=== PATIENT | male | born 1940 | race Caucasian/White ===

== ENCOUNTER 2018-02-10 11:29 | Emergency (ER) | payer OTHER, MEDICARE ==
[2018-02-10] MEDS: ACETAMINOPH W/CODEINE #3 TAB UD PO (13:52)
[2018-02-10 14:15] LABS: APPEARANCE, URINE CLEAR (CLEAR); BACTERIA, URINE AUTO NEGATIVE (NEGATIVE); BILIRUBIN, URINE AUTO NEGATIVE (NEGATIVE); BLOOD, URINE BLOOD NEGATIVE (NEGATIVE); COLOR, URINE YELLOW (YELLOW); GLUCOSE, URINE (UA) AUTO NEGATIVE (NEGATIVE); KETONE, URINE AUTO NEGATIVE (NEGATIVE); LEUKOCYTE ESTERASE, URINE AUTO NEGATIVE (NEGATIVE); MUCUS, URINE SMALL (NEGATIVE); NITRITE, URINE AUTO NEGATIVE (NEGATIVE); PROTEIN, URINE AUTO NEGATIVE (NEGATIVE); RBC, URINE AUTO 0 /HPF (0-3); SPECIFIC GRAVITY URINE AUTO 1.024 (1.002-1.035); SQUAMOUS EPITHELIAL CELL UR AU 0 /HPF (0-6); UROBILINOGEN, URINE AUTO 0.2 mg/dL (0.0-2.0); WBC, URINE AUTO 0 /HPF (0-3)
== END 2018-02-10 15:18 | disposition home or self-care (01) ==
LOC: M ED 11:29
DX: S32.010A Wedge compression fracture of first lumbar vertebra, initial encounter for closed fracture (principal); W13.2XXA Fall from, out of or through roof, initial encounter; Y92.89 Other specified places as the place of occurrence of the external cause; E78.9 Disorder of lipoprotein metabolism, unspecified; Z79.899 Other long term (current) drug therapy; Z87.891 Personal history of nicotine dependence
CPT/HCPCS: 72110

== ENCOUNTER → 2019-04-30 | Outpatient (CLI) | payer OTHER ==
[~2019-04-30] MED LIST: ACET-716 PO; IBUP-1022 PO; MAGN200T PO; ROBA500T PO; SIMV10TA2 PO
--- NOTE | 2019-05-01 00:14 | REP ---
Examination Requested: Cookie Swallow Reason For Exam: Gastroesophageal reflux The procedure was performed by DAMON Anderson, under the direct supervision of Dr. Stanley. The procedure was performed with Josselyn Avila from speech pathology present. 5 ml aliquots of thin, pudding, mixed fruit, soft food, hard food and pill consistency barium was administered. No penetration or aspiration was observed throughout the course of the exam. The detailed report of this examination will be provided by speech pathology. 1.4 minutes of fluoroscopy time was utilized for this procedure. Reviewed by DAMON Lund 04/30/2019 11:36 A Electronically Signed by Roni Stanley MD 05/01/2019 12:05 A
== END ==
LOC: M ST 10:34
PROVIDERS: ATTEND Otolaryngology
DX: K21.9 Gastro-esophageal reflux disease without esophagitis (principal)

== ENCOUNTER → 2021-01-19 | Outpatient (CLI) | payer OTHER ==
[~2021-01-19] MED LIST changes: +OMEP40CA97 PO; -SIMV10TA2 PO; +SIMV10TA21 PO
== END ==
LOC: M LABSMTC 10:43
PROVIDERS: ATTEND Anesthesiology
DX: Z01.818 Encounter for other preprocedural examination (principal); Z11.52 Encounter for screening for COVID-19

== ENCOUNTER 2021-01-24 09:28 | Day surgery (SDC) | payer OTHER ==
[~2021-01-24] VITALS: Ht 172.7 cm; Wt 74.4 kg
[~2021-01-24 09:28] MED LIST changes: +LIDOCAINE 2% 100MG/5ML SDV (FOR ANES.) As Ordered ONE; +NS 1,000 ML IV ONE; +propofoL 500 MG/50 ML VIAL As Ordered ONE
[2021-01-24] MEDS ORDERED: ePHEDrine SULFATE 25 MG/5 ML(5MG/ML) SYRINGE As Ordered ONE (10:43)
--- NOTE | 2021-01-24 10:54 | ROOR ---
Patient Name: Baldemar Galarza Procedure Date: 01/24/2021 10:28 AM Date of : 1940 Age: 80 Room: [facility] Gender: Male Note Status: Finalized Procedure: Total Colonoscopy to Cecum + ileoscopy Indications: High risk colon cancer surveillance: Personal history of colonic polyps, Last colonoscopy: 2015 Providers: Vega Veronica MD Referring MD: Nicola Merrill Requesting Provider: Medicines: Monitored Anesthesia Care Complications: No immediate complications. Procedure: Pre-Anesthesia Assessment: - The heart rate, respiratory rate, oxygen saturations, blood pressure, adequacy of pulmonary ventilation, and response to care were monitored throughout the procedure. The Colonoscope was introduced through the anus and advanced to the cecum, identified by appendiceal orifice and ileocecal valve. The colonoscopy was performed without difficulty. The patient tolerated the procedure well. The quality of the bowel preparation was excellent. Findings: The perianal and digital rectal examinations were normal. Non-bleeding internal hemorrhoids were found during retroflexion. The hemorrhoids were small and Grade I (internal hemorrhoids that do not prolapse). The exam was otherwise without abnormality on direct and retroflexion views. The terminal ileum appeared normal. Impression: - Non-bleeding internal hemorrhoids. - The examination was otherwise normal on direct and retroflexion views. - The examined portion of the ileum was normal. - No specimens collected. - The exam was otherwise normal to the cecum. Recommendation: - Patient has a contact number available for emergencies. The signs and symptoms of potential delayed complications were discussed with the patient. Return to normal activities tomorrow. Written discharge instructions were provided to the patient. - High fiber diet. - Discharge patient to home. - Continue present medications. - Repeat colonoscopy is not recommended due to current age (66 years or older) for surveillance. - Return to referring physician. - The findings and recommendations were discussed with the patient. Procedure Code(s): --- Professional --- G0105, Colorectal cancer screening; colonoscopy on individual at high risk Diagnosis Code(s): --- Professional --- Z86.010, Personal history of colonic polyps K64.0, First degree hemorrhoids CPT copyright 2019 [employer]. All rights reserved. The codes documented in this report are preliminary and upon loan underwriter review may be revised to meet current compliance requirements. Vega Veronica MD Vega Veronica MD 01/24/2021 10:53:33 AM Electronically signed by Vega Veronica MD Number of Addenda: 0 Note Initiated On: 01/24/2021 10:28 AM Estimated Blood Loss: Estimated blood loss: none.
[2021-01-24 11:10] VITALS: BP 114/56
== END 2021-01-24 11:20 | disposition home or self-care (01) ==
LOC: M OPP 09:28
PROVIDERS: ATTEND Internal Medicine Gastroenterology
DX: Z12.11 Encounter for screening for malignant neoplasm of colon (principal); Z86.010 Personal history of colon polyps; K64.0 First degree hemorrhoids; K21.9 Gastro-esophageal reflux disease without esophagitis; Z79.899 Other long term (current) drug therapy

== ENCOUNTER 2022-06-24 16:27 | Emergency (ER) | payer OTHER ==
[~2022-06-24] VITALS: Ht 172.7 cm; Wt 74.5 kg
[~2022-06-24 16:27] MED LIST changes: -LIDOCAINE 2% 100MG/5ML SDV (FOR ANES.) As Ordered ONE; -NS 1,000 ML IV ONE; +OMEP40CA4 PO; -OMEP40CA97 PO; -propofoL 500 MG/50 ML VIAL As Ordered ONE
[2022-06-24] MEDS ORDERED: NS 500 ML IV ONE (17:30)
[2022-06-24] MEDS: METOPROLOL 5 MG/5 ML VIAL IV SCH ×3 (17:30→17:52)
[2022-06-24] MEDS ORDERED: METOPROLOL TART 25 MG TABLET PO ONE (18:30)
[2022-06-24] MEDS ORDERED: METOPROLOL TART 12.5 MG PER 1/2 TAB PO ONE (18:35)
[2022-06-24 18:45] LABS: BASO % 0.6 % (0.0-1.0); EOS # 0.1 10^3/uL (0.0-0.5); EOS % 0.8 % (0.0-3.0); HEMATOCRIT 44.7 % (42.0-52.0); HEMOGLOBIN 14.8 g/dl (13.5-17.5); LYMPH # 1.5 10^3/uL (1.5-5.0); LYMPH % 22.3 % (24.0-44.0); MEAN CORPUSCULAR HEMOGLOBIN 29.2 pg (27.0-33.0); MEAN CORPUSCULAR HGB CONC 33.1 g/dl (32.0-36.5); MEAN CORPUSCULAR VOLUME 88.3 fl (80.0-96.0); MONO # 0.7 10^3/uL (0.0-0.8); NEUTROPHILS # 4.3 10^3/uL (1.5-8.5); PLATELET COUNT, AUTOMATED 182 10^3/uL (150-450); RED BLOOD COUNT 5.06 10^6/uL (4.30-6.10); WHITE BLOOD COUNT 6.5 10^3/uL (4.0-10.0)
[2022-06-24 19:01] VITALS: BP 116/79
[2022-06-24 19:21] LABS: BLOOD UREA NITROGEN 18 MG/DL (7-18); CALCIUM LEVEL 8.7 MG/DL (8.8-10.2); CARBON DIOXIDE LEVEL 31 MEQ/L (21-32); CHLORIDE LEVEL 109 MEQ/L (98-107); CREATININE FOR GFR 0.79 MG/DL (0.70-1.30); FREE T4 0.88 NG/DL (0.76-1.46); GLOMERULAR FILTRATION RATE > 60.0 (>35); GLUCOSE, FASTING 111 MG/DL (70-100); MAGNESIUM LEVEL 2.2 MG/DL (1.8-2.4); POTASSIUM SERUM 4.5 MEQ/L (3.5-5.1); SODIUM LEVEL 142 MEQ/L (136-145)
[2022-06-24 21:06] VITALS: BP 104/76
== END 2022-06-24 21:15 | disposition home or self-care (01) ==
LOC: M ED 16:27
DX: R00.2 Palpitations (principal); E78.5 Hyperlipidemia, unspecified; I51.9 Heart disease, unspecified; R00.0 Tachycardia, unspecified; I44.1 Atrioventricular block, second degree; Z79.899 Other long term (current) drug therapy

== ENCOUNTER → 2023-01-09 | Outpatient (CLI) | payer OTHER | LOC: M SOG 11:38 | PROVIDERS: ATTEND Physician Assistant | DX: M79.641 Pain in right hand (principal) ==

== ENCOUNTER 2024-03-26 09:02 | Day surgery (SDC) | payer OTHER ==
[~2024-03-26] VITALS: Ht 172.7 cm; Wt 75.1 kg
[~2024-03-26 09:02] MED LIST changes: +DILT120C78 PO; +LIDOCAINE W/EPINEPHRINE 1% 20ML VIAL XX ONE; +MAGN250T7 PO; +PANT20TA6 PO; +SODIUM BICARBONATE 8.4% INJ 50MEQ 50ML VIAL XX ONE; +THERTAB52 PO; +VITA100T59 PO
[2024-03-26] MEDS ORDERED: BACITRACIN OINTMENT 30GM TUBE As Ordered ONE (11:36)
[2024-03-26 11:42] VITALS: BP 148/76; TEMP 97.7; O2SAT 97
== END 2024-03-26 12:05 | disposition home or self-care (01) ==
LOC: M SDC 09:02
PROVIDERS: ATTEND Orthopaedic Surgery Hand Surgery
DX: M65.332 Trigger finger, left middle finger (principal)

== ENCOUNTER → 2024-06-10 | Outpatient (CLI) | payer OTHER ==
[~2024-06-10] MED LIST changes: -LIDOCAINE W/EPINEPHRINE 1% 20ML VIAL XX ONE; -SODIUM BICARBONATE 8.4% INJ 50MEQ 50ML VIAL XX ONE
== END ==
LOC: M RAD 14:18
PROVIDERS: ATTEND Nurse Practitioner Family
DX: M79.605 Pain in left leg (principal)

== ENCOUNTER 2025-05-18 14:58 | Emergency (ER) | payer OTHER ==
[~2025-05-18] VITALS: Ht 170.2 cm; Wt 72.7 kg
[~2025-05-18 14:58] MED LIST changes: -IBUP-1022 PO; +IBUP600T42 PO
[2025-05-18] MEDS ORDERED: ISOVUE-370 76% 100 ML VIAL As Ordered ONE (16:02)
[2025-05-18 16:24] LABS: BASO # 0.0 10^3/uL (0.0-0.2); BASO % 0.7 % (0.0-1.0); EOS # 0.0 10^3/uL (0.0-0.5); EOS % 0.7 % (0.0-3.0); LYMPH # 1.3 10^3/uL (1.5-5.0); LYMPH % 23.2 % (24.0-44.0); MONO # 0.6 10^3/uL (0.0-0.8); MONO % 11.4 % (2.0-8.0); NEUTROPHILS # 3.5 10^3/uL (1.5-8.5); NEUTROPHILS % 63.6 % (36.0-66.0); PLATELET COUNT, AUTOMATED 167 10^3/uL (150-450)
[2025-05-18 16:28] VITALS: BP 164/70; TEMP 97.8
[2025-05-18 16:40] LABS: INR 1.07
[2025-05-18 16:43] VITALS: BP 158/60; TEMP 97.2
[2025-05-18 16:43] LABS: ETHYL ALCOHOL (ETHANOL) 0.005 % (0.000-0.010)
[2025-05-18 16:45] LABS: CALCIUM LEVEL 9.6 MG/DL (8.3-10.6); CARBON DIOXIDE LEVEL 30.0 MMOL/L (20-31); CHLORIDE LEVEL 105.0 MMOL/L (98-107); CREATININE FOR GFR 0.89 MG/DL (0.70-1.30); GLOMERULAR FILTRATION RATE 84.5 (>35); POTASSIUM SERUM 4.6 MMOL/L (3.5-5.1); SODIUM LEVEL 143.0 MMOL/L (136-145)
[2025-05-18 17:05] VITALS: BP 124/62; TEMP 97.8
[2025-05-18] MEDS ORDERED: AMIO100T4 PO (17:26)
[2025-05-18] MEDS: NS (Normal Saline) 0.9% 1,000 ML IV ONE ×2 (17:57→19:36)
[2025-05-18 18:05] VITALS: TEMP 98.2
[2025-05-18] MEDS ORDERED: NOREPINEPHRINE 4MG IN D5 250ML 4 MG in IV 1 EA IV SCH (18:15)
[2025-05-18 19:05] VITALS: BP 138/64; TEMP 97.6
[2025-05-18 19:51] VITALS: BP 151/66; TEMP 98.1; O2SAT 97
== END 2025-05-18 20:00 | disposition short-term general hospital (02) ==
LOC: M ED 14:58
DX: I63.9 Cerebral infarction, unspecified (principal); I65.22 Occlusion and stenosis of left carotid artery; I44.0 Atrioventricular block, first degree; R00.1 Bradycardia, unspecified; J98.11 Atelectasis; I51.7 Cardiomegaly; E78.5 Hyperlipidemia, unspecified; F10.10 Alcohol abuse, uncomplicated; Z79.899 Other long term (current) drug therapy
CPT/HCPCS: 70450; 70496; 70498; 71045; 80047; 80048; 82077; 85025; 85610; 85730; 93005; 93041; 94760; 96360; 96361; 99285; Q9967